=== PATIENT | male | born 1990 | race Caucasian/White ===

== ENCOUNTER 2023-01-01 14:03 | Emergency (ER) | payer BC ==
[~2023-01-01] VITALS: Ht 177.8 cm; Wt 97.0 kg
[2023-01-01 14:10] VITALS: BP 138/98
[2023-01-01] MEDS ORDERED: FAMOTIDINE 20MG TABLET PO ONE (14:30)
[2023-01-01] MEDS ORDERED: PREDNISONE 20MG TABLET PO ONE (14:30)
[2023-01-01] MEDS ORDERED: DIPHENHYDRAMINE 25MG CAPSULE PO ONE (14:30)
[2023-01-01] MEDS ORDERED: DIPH25CA83 MT (18:14)
[2023-01-01] MEDS ORDERED: P50 MT (18:14)
== END 2023-01-01 18:34 | disposition home or self-care (01) ==
LOC: ER 14:49
DX: R21 Rash and other nonspecific skin eruption (principal); L29.9 Pruritus, unspecified; J45.909 Unspecified asthma, uncomplicated
CPT/HCPCS: 99284; J7512; Q0163; Z7610